=== PATIENT | female | born 1955 | race Caucasian/White ===

== ENCOUNTER 2019-10-30 21:48 | Emergency (ER) | payer OTHER, MEDICAID ==
[~2019-10-30] VITALS: Ht 165.1 cm; Wt 73.9 kg
[2019-10-31 01:40] VITALS: BP 162/80
== END 2019-10-31 02:23 | disposition home or self-care (01) ==
LOC: ER 21:48
DX: S13.9XXA Sprain of joints and ligaments of unspecified parts of neck, initial encounter (principal); R07.89 Other chest pain; E11.9 Type 2 diabetes mellitus without complications; E78.5 Hyperlipidemia, unspecified; I10 Essential (primary) hypertension; Z88.6 Allergy status to analgesic agent; Z88.8 Allergy status to other drugs, medicaments and biological substances; V43.52XA Car driver injured in collision with other type car in traffic accident, initial encounter; Y93.89 Activity, other specified; Y92.488 Other paved roadways as the place of occurrence of the external cause; Y99.8 Other external cause status
CPT/HCPCS: 70450; 71046; 71250; 72125; 74176